=== PATIENT | female | born 1995 | race Caucasian/White ===

== ENCOUNTER 2017-05-27 12:15 | Inpatient (IN) | payer MEDICAID, OTHER ==
[~2017-05-27] VITALS: Ht 162.6 cm; Wt 52.6 kg
[2017-05-27] MEDS ORDERED: OXYTOCIN/NORMAL SALINE 1,000 ML IV SCH (12:47)
[2017-05-27] MEDS ORDERED: LR 1,000 ML IV SCH (12:47)
[2017-05-27] MEDS ORDERED: TERBUTALINE SULFATE 1 MG/ML VIAL SUBCUT ONE (13:00)
[2017-05-27] MEDS ORDERED: NALBUPHINE HCL 10 MG/ML AMP IVP PRN (13:00)
[2017-05-27] MEDS ORDERED: AMPICILLIN SODIUM 2 GM in NS 100 ML IV ONE (13:00)
[2017-05-27] MEDS ORDERED: AMPICILLIN SODIUM 2 GM VIAL ONE (13:06)
[2017-05-27 13:53] LABS: BASOPHILS # (AUTO) 0.5 K/uL (0.0-0.2); BASOPHILS % (AUTO) 3.6 % (0.0-2.0); EOSINOPHILS # (AUTO) 0.1 K/uL (0.0-0.4); EOSINOPHILS % (AUTO) 0.6 % (0.0-4.0); HEMATOCRIT 33.4 % (36-48); HEMOGLOBIN 11.2 g/dL (12.0-16.0); LYMPHOCYTES # (AUTO) 1.4 K/uL (1.0-5.5); LYMPHOCYTES % (AUTO) 11.1 % (20.5-51.5); MEAN CORPUSCULAR HEMOGLOBIN 29 pg (27-31); MEAN CORPUSCULAR HGB CONC 34 % (32-36); MEAN CORPUSCULAR VOLUME 87 fL (79.0-98.0); MONOCYTES # (AUTO) 0.7 K/uL (0.0-1.0); MONOCYTES % (AUTO) 5.7 % (1.7-9.3); PLATELET COUNT (AUTO) 194 K/uL (130-430); RED BLOOD CELL COUNT(AUTO) 3.84 MIL/uL (4.2-6.2); RED CELL DISTRIBUTION WIDTH 11.9 % (9.0-15.0); WHITE BLOOD COUNT (AUTO) 12.7 K/uL (4.5-11.0)
[2017-05-27 14:58] VITALS: BP_SYST 132
[2017-05-27] MEDS ORDERED: OXYTOCIN 10 UNIT/ML VIAL ONE ×2 (15:26→20:30)
[2017-05-27] MEDS ORDERED: ONDANSETRON HCL 4 MG/2 ML VIAL ONE (16:53)
[2017-05-27] MEDS ORDERED: ONDANSETRON HCL 4 MG/2 ML VIAL IVP PRN (17:00)
[2017-05-27] MEDS ORDERED: AMPICILLIN SODIUM 1 GM in NS 50 ML IV SCH (17:00)
[2017-05-27] MEDS ORDERED: OXYTOCIN/NORMAL SALINE 1,000 ML IV ONE (20:56)
[2017-05-27] MEDS ORDERED: ANUSOL 1 EA SUPP.RECT (PREPARATION H) RC PRN (21:00)
[2017-05-27] MEDS ORDERED: TEMAZEPAM 15 MG CAPSULE PO PRN (21:00)
[2017-05-27] MEDS ORDERED: GLYCERIN/WITCH HAZEL (TUCKS PADS) TP PRN (21:00)
[2017-05-27] MEDS ORDERED: HYDROCORTISONE 0.5%, 28.35 GM TOPICAL CREAM TP PRN (21:00)
[2017-05-27] MEDS ORDERED: DERMOPLAST SPRAY TP PRN (21:00)
[2017-05-27] MEDS ORDERED: DOCUSATE SODIUM 100 MG CAPSULE PO PRN (21:00)
[2017-05-27] MEDS ORDERED: HYDROcodone/ACETAMIN 5-325 MG TAB (NORCO/ VICODIN) PO PRN (21:00)
[2017-05-27] MEDS ORDERED: LANOLIN 7 GM OINT. TP PRN (21:00)
[2017-05-27] MEDS ORDERED: OXYCODONE/ACETAMINOPHEN 5-325 TABLET PO PRN (21:00)
[2017-05-27] MEDS ORDERED: SENNOSIDES/DOCUSATE SODIUM 1 TAB TABLET(SENOKOT-S) PO PRN (21:00)
[2017-05-27] MEDS: IBUPROFEN 800 MG TABLET PO PRN (22:45)
[2017-05-28 06:49] LABS: HEMATOCRIT 29.1 % (36-48); HEMOGLOBIN 9.6 g/dL (12.0-16.0)
[2017-05-28] MEDS ORDERED: LIDOCAINE PF 1% 30ML(POUR BTL) INJ ONE (07:57)
[2017-05-28] MEDS ORDERED: MINERAL OIL 30 ML UDC PO ONE (07:57)
[2017-05-28] MEDS: IBUPROFEN 800 MG TABLET PO PRN ×2 (08:09→22:48)
[2017-05-28] MEDS ORDERED: IBUP-1480 PO (13:43)
[2017-05-28] MEDS ORDERED: DOCU-144 PO (13:43)
[2017-05-29] MEDS: IBUPROFEN 800 MG TABLET PO PRN (05:48)
== END 2017-05-29 15:45 | disposition home or self-care (01) | DRG 775 ==
LOC: SPU 12:15
PROVIDERS: ADMIT Specialist; ATTEND Specialist
PROC: 10E0XZZ Delivery of Products of Conception, External Approach (ICD-10-PCS; principal; 2017-05-27)
DX: O60.14X0 Preterm labor third trimester with preterm delivery third trimester, not applicable or unspecified (principal); O99.344 Other mental disorders complicating childbirth; F41.0 Panic disorder [episodic paroxysmal anxiety]; Z53.29 Procedure and treatment not carried out because of patient's decision for other reasons; O70.1 Second degree perineal laceration during delivery; Z37.0 Single live birth; Z91.19 Patient's noncompliance with other medical treatment and regimen; Z3A.35 35 weeks gestation of pregnancy
CPT/HCPCS: 36415; 76805-TC; 81002-TC; 85018-TC; 85025; 86592; 86886; 86900; 86901; 87070-TC; 87075-TC; 87186-TC; 87536; J0290; J2001; J2405; J2590

== ENCOUNTER 2018-01-28 13:00 | Emergency (ER) | payer OTHER ==
[~2018-01-28] VITALS: Ht 162.6 cm; Wt 52.2 kg
[~2018-01-28 13:00] MED LIST: DOCU-144 PO; IBUP-1480 PO
[2018-01-28 13:24] VITALS: BP_SYST 109
[2018-01-28 14:30] VITALS: BP_SYST 109
== END 2018-01-28 14:30 | disposition home or self-care (01) ==
LOC: SED 13:00
DX: L76.22 Postprocedural hemorrhage of skin and subcutaneous tissue following other procedure (principal)
CPT/HCPCS: 99282